=== PATIENT | male | born 1985 | race Caucasian/White ===

== ENCOUNTER 2019-05-23 14:07 | Outpatient (RCR) | payer OTHER ==
[~2019-05-23 14:07] MED LIST: NO HOME MEDICATIONS; PHENERGAN 25 TA25 MG PO
== END 2019-05-24 13:47 | disposition still patient (30) ==
LOC: WSOH 14:07
DX: S63.642A Sprain of metacarpophalangeal joint of left thumb, initial encounter (principal); Y99.0 Civilian activity done for income or pay